=== PATIENT | female | born 1960 | race Caucasian/White ===

== ENCOUNTER 2024-09-18 10:15 | Emergency (ER) | payer BC ==
[2024-09-18 10:26] VITALS: RESP 16; BMI 21.9
[2024-09-18 12:19] LABS: ABSOLUTE IMMATURE GRANULOCYTES 0.04 x10^3/uL (0.0-0.031); BASOPHILS # 0.04 x10^3/uL (0.01-0.08); EOSINOPHIL % 0.3 % (0.7-5.8); EOSINOPHILS # 0.03 x10^3/uL (0.04-0.36); HEMATOCRIT 34.7 % (34.1-44.9); HEMOGLOBIN 10.9 g/dL (11.2-15.7); MCHC 31.4 g/dl (32.2-35.5); MEAN CELL VOLUME 89.7 fl (79.4-94.8); MEAN PLT VOLUME 8.5 fl (9.4-12.3); MONOCYTE % 11.3 % (4.7-12.5); PLATELET COUNT 471 x10^3/uL (182-369); RDW 16.9 % (12.4-16.4)
[2024-09-18 13:00] LABS: POTASSIUM 4.3 mmol/L (3.5-5.1)
[2024-09-18 13:01] LABS: ALBUMIN 3.2 g/dl (3.4-5.0)
[2024-09-18 13:02] LABS: CALCIUM 9.8 mg/dL (8.5-10.1)
[2024-09-18 13:06] LABS: CREATININE 0.5 mg/dL (0.55-1.3)
[2024-09-18 13:07] LABS: BILIRUBIN,TOTAL 0.4 mg/dL (0.2-1)
[2024-09-18] MEDS ORDERED: KETOROLAC TROMETHAMINE 15 MG/ML VIAL ONE (17:23)
[2024-09-18] MEDS: KETOROLAC TROMETHAMINE 15 MG/ML VIAL IVPUSH ONE (17:40)
[2024-09-18 17:58] LABS: PH,URINE 6.5 (5.0-8.0); URINE APPEARANCE CLEAR; URINE BILIRUBIN NEGATIVE (NEGATIVE); URINE COLOR YELLOW; URINE GLUCOSE (UA) NEGATIVE (NEGATIVE); URINE KETONE NEGATIVE (NEGATIVE); URINE LEUK ESTERASE NEGATIVE (NEGATIVE); URINE NITRITE NEGATIVE (NEGATIVE); URINE PROTEIN TRACE (NEGATIVE); URINE UROBILINOGEN 0.2 mg/dL (0.2-1.0)
[2024-09-18 18:26] VITALS: BP 124/84; PULSE 94; TEMP 98.9
== END 2024-09-18 19:55 | disposition home or self-care (01) ==
LOC: JER 10:15
PROC: 3E0333Z Introduction of Anti-inflammatory into Peripheral Vein, Percutaneous Approach (ICD-10-PCS; principal; 2024-09-18)
DX: K76.89 Other specified diseases of liver (principal); R91.8 Other nonspecific abnormal finding of lung field; E27.8 Other specified disorders of adrenal gland; R10.30 Lower abdominal pain, unspecified; R22.0 Localized swelling, mass and lump, head; R35.0 Frequency of micturition; M54.50 Low back pain, unspecified; R29.898 Other symptoms and signs involving the musculoskeletal system
CPT/HCPCS: 36415; 70450-TC; 71045-TC-FY; 72100-TC-FY; 74177-TC; 80053; 81003; 85025; 87086; 99285-25; Q9967